=== PATIENT | female | born 1970 | race Caucasian/White ===

== ENCOUNTER → 2023-09-12 14:58 | Outpatient (REF) | payer BC, SELFPAY | LOC: WDC 14:58 | PROVIDERS: ATTENDING PHYSICIAN Obstetrics & Gynecology Gynecology; FAMILY PHYSICIAN Emergency Medicine | DX: Z12.31 Encounter for screening mammogram for malignant neoplasm of breast (principal) | CPT/HCPCS: 77063; 77067 ==

== ENCOUNTER → 2023-11-03 07:20 | Outpatient (REF) | payer BC, SELFPAY | LOC: PAVMRI 07:20 | PROVIDERS: ATTENDING PHYSICIAN Physician Assistant Surgical; FAMILY PHYSICIAN Emergency Medicine | DX: M25.571 Pain in right ankle and joints of right foot (principal); M79.671 Pain in right foot | CPT/HCPCS: 73718; 73721 ==

== ENCOUNTER 2023-12-22 16:28 | Outpatient (RCR) | payer BC, SELFPAY | END 2023-12-22 23:59 | disposition home or self-care (01) | LOC: RPT 16:28 | PROVIDERS: ATTENDING PHYSICIAN Student in an Organized Health Care Education/Training Program; FAMILY PHYSICIAN Emergency Medicine | DX: M76.821 Posterior tibial tendinitis, right leg (principal); Z73.6 Limitation of activities due to disability; M25.571 Pain in right ankle and joints of right foot; R26.2 Difficulty in walking, not elsewhere classified | CPT/HCPCS: 97010; 97110; 97140; 97162 ==

== ENCOUNTER 2024-01-18 15:17 | Outpatient (RCR) | payer BC, SELFPAY | END 2024-01-18 23:59 | disposition home or self-care (01) | LOC: RPT 15:17 | PROVIDERS: ATTENDING PHYSICIAN Student in an Organized Health Care Education/Training Program; FAMILY PHYSICIAN Emergency Medicine | DX: M76.821 Posterior tibial tendinitis, right leg (principal); Z73.6 Limitation of activities due to disability; R26.2 Difficulty in walking, not elsewhere classified | CPT/HCPCS: 97110 ==

== ENCOUNTER → 2024-01-27 07:16 | Outpatient (REF) | payer BC, SELFPAY ==
[2024-01-27 08:47] LABS: % Basophils 0.8 % (0-2); % Eosinophils 2.8 % (0-6); % Immature Granulocytes 0.6 % (0-0.5); % Lymphocytes 26.3 % (20.5-51.1); % Monocytes 5.6 % (1.7-9.3); % Neutrophils 63.9 % (42.2-75.2); Absolute Eosinophils 0.2 10^3/uL (0-0.7); Absolute Lymphocytes 1.4 10^3/uL (1.2-3.4); Absolute Monocytes 0.3 10^3/uL (0.1-0.6); Absolute Neutrophils 3.4 10^3/uL (1.4-6.5); Hematocrit 35.7 % (37.0-47.0); Hemoglobin 11.5 g/dL (12.0-16.0); Mean Corp Hgb Conc. 32.2 g/dL (33.0-37.0); Mean Corpuscular Hgb 25.8 pg (27.0-31.0); Mean Platelet Volume 10.9 fL (7.4-10.4); Nucleated Red Blood Cells % 0 %; Platelet Count 199 10^3/uL (130-400); Red Blood Cell Count 4.46 10^6/uL (4.20-5.40); Red Cell Dist. Width 16.3 % (11.5-14.5); White Blood Cell Count 5.3 10^3/uL (4.8-10.8)
[2024-01-27 09:16] LABS: ALT (SGPT) 33 U/L (0-35); AST (SGOT) 26 U/L (14-36); Albumin 4.1 g/dl (3.5-5.0); Alkaline Phosphatase 81 U/L (38-126); Blood Urea Nitrogen 19 mg/dl (7-17); Calcium 9.5 mg/dl (8.4-10.2); Carbon Dioxide 26 mmol/L (22-30); Chloride 103 mmol/L (98-107); Glucose 122 mg/dl (70-99); HDL Cholesterol 41 mg/dl; LDL Cholesterol, Calculated 122 mg/dl; Potassium 4.4 mmol/L (3.5-5.1); Sodium 138 mmol/L (135-145); Total Bilirubin 0.4 mg/dl (0.2-1.3); Total Cholesterol 192 mg/dl (50-199); Total Protein 6.8 g/dl (6.3-8.2); Triglyceride 146 mg/dl (10-149); Very Low Density Lipoprotein 29 mg/dl (0-30); eGFR > 60.00
[2024-01-28 09:24] LABS: Glycohemoglobin (HgbA1c) 5.7 % (4.0-5.6)
== END ==
LOC: REG 07:16
PROVIDERS: ATTENDING PHYSICIAN Internal Medicine Endocrinology, Diabetes & Metabolism; FAMILY PHYSICIAN Emergency Medicine
DX: R73.03 Prediabetes (principal); I10 Essential (primary) hypertension
CPT/HCPCS: 36415; 80053; 80061; 83036; 85025

== ENCOUNTER 2024-02-09 17:30 | Outpatient (RCR) | payer BC, SELFPAY | END 2024-02-09 23:59 | disposition home or self-care (01) | LOC: RPT 17:30 | PROVIDERS: ATTENDING PHYSICIAN Student in an Organized Health Care Education/Training Program; FAMILY PHYSICIAN Emergency Medicine | DX: M76.821 Posterior tibial tendinitis, right leg (principal); Z73.6 Limitation of activities due to disability; R26.2 Difficulty in walking, not elsewhere classified | CPT/HCPCS: 97110; 97140 ==

== ENCOUNTER 2024-02-15 06:16 | Day surgery (SDC) | payer BC, SELFPAY ==
[2024-02-15 07:39] VITALS: BMI 45.2
[2024-02-15 07:41] VITALS: BMI 45.2
[2024-02-15 07:53] VITALS: BP 153/73
--- NOTE | 2024-02-15 08:12 | PTCARENOTE ---
1 miss for patients IV. Patient states that she has very difficult veins. IV team called to start IV. Will monitor patient.
[2024-02-15 09:35] VITALS: BP 136/58
[2024-02-15 09:45] VITALS: BP 153/81
[2024-02-15 10:00] VITALS: BP 153/71
[2024-02-15 10:12] VITALS: BP 159/73
== END 2024-02-15 10:25 | disposition home or self-care (01) ==
LOC: GI 06:16
PROVIDERS: ATTENDING PHYSICIAN Internal Medicine Gastroenterology
DX: K44.9 Diaphragmatic hernia without obstruction or gangrene (principal); K29.50 Unspecified chronic gastritis without bleeding; K21.9 Gastro-esophageal reflux disease without esophagitis
CPT/HCPCS: 43239; 88305; 88342

== ENCOUNTER → 2024-03-05 06:56 | Outpatient (REF) | payer BC, SELFPAY | LOC: PAVMRI 06:56 | PROVIDERS: ATTENDING PHYSICIAN Student in an Organized Health Care Education/Training Program; FAMILY PHYSICIAN Emergency Medicine | DX: M79.671 Pain in right foot (principal); M25.571 Pain in right ankle and joints of right foot | CPT/HCPCS: 73718; 73721 ==

== ENCOUNTER → 2024-03-13 07:02 | Outpatient (REF) | payer BC, SELFPAY | LOC: EMG 07:02 | PROVIDERS: ATTENDING PHYSICIAN Student in an Organized Health Care Education/Training Program; FAMILY PHYSICIAN Emergency Medicine | DX: R20.0 Anesthesia of skin (principal) | CPT/HCPCS: 95886; 95911 ==

== ENCOUNTER 2024-04-19 13:43 | Outpatient (RCR) | payer BC, SELFPAY | END 2024-04-19 23:59 | disposition home or self-care (01) | LOC: RPT 13:43 | PROVIDERS: ATTENDING PHYSICIAN Student in an Organized Health Care Education/Training Program; FAMILY PHYSICIAN Emergency Medicine | DX: M76.821 Posterior tibial tendinitis, right leg (principal); Z73.6 Limitation of activities due to disability; R26.2 Difficulty in walking, not elsewhere classified | CPT/HCPCS: 97110; 97112 ==

== ENCOUNTER 2024-05-15 15:46 | Outpatient (RCR) | payer BC, SELFPAY | END 2024-05-15 23:59 | disposition home or self-care (01) | LOC: RPT 15:46 | PROVIDERS: ATTENDING PHYSICIAN Student in an Organized Health Care Education/Training Program; FAMILY PHYSICIAN Emergency Medicine | DX: M76.829 Posterior tibial tendinitis, unspecified leg (principal); Z73.6 Limitation of activities due to disability | CPT/HCPCS: 97110; 97112; 97530 ==

== ENCOUNTER → 2024-07-15 09:29 | Outpatient (REF) | payer BC, SELFPAY ==
[2024-07-15 09:57] LABS: % Basophils 0.3 % (0-2); % Eosinophils 2.9 % (0-6); % Immature Granulocytes 0.6 % (0-0.5); % Lymphocytes 18.7 % (20.5-51.1); % Neutrophils 71.5 % (42.2-75.2); Absolute Eosinophils 0.2 10^3/uL (0-0.7); Absolute Lymphocytes 1.2 10^3/uL (1.2-3.4); Absolute Monocytes 0.4 10^3/uL (0.1-0.6); Absolute Neutrophils 4.4 10^3/uL (1.4-6.5); Hematocrit 36.1 % (37.0-47.0); Hemoglobin 11.4 g/dL (12.0-16.0); Mean Corp Hgb Conc. 31.6 g/dL (33.0-37.0); Mean Corpuscular Hgb 25.7 pg (27.0-31.0); Mean Corpuscular Volume 81.3 fL (81.0-99.0); Mean Platelet Volume 11.1 fL (7.4-10.4); Nucleated Red Blood Cells % 0 %; Platelet Count 197 10^3/uL (130-400); Red Blood Cell Count 4.44 10^6/uL (4.20-5.40); Red Cell Dist. Width 16.9 % (11.5-14.5); White Blood Cell Count 6.2 10^3/uL (4.8-10.8)
[2024-07-15 09:59] LABS: Urine Albumin Negative (Neg - Trace); Urine Bilirubin Negative (Negative); Urine Character Clear (Clear); Urine Color Yellow; Urine Glucose Negative (Negative); Urine Ketone Negative (Negative); Urine Leukocyte Negative (Negative); Urine Nitrite Negative (Negative); Urine Occult Blood Negative (Negative); Urine Urobilinogen Negative (Neg - 1+)
[2024-07-15 10:22] LABS: Total Iron Binding Capacity 326 ug/dl (265-497)
[2024-07-15 10:29] LABS: Vitamin D, 25-OH*** 54.1 ng/mL (30-80)
[2024-07-15 10:35] LABS: Glycohemoglobin (HgbA1c) 5.7 % (4.0-5.6)
[2024-07-15 10:41] LABS: ALT (SGPT) 36 U/L (0-35); AST (SGOT) 28 U/L (14-36); Albumin 4.4 g/dl (3.5-5.0); Alkaline Phosphatase 68 U/L (38-126); Blood Urea Nitrogen 23 mg/dl (7-17); Calcium 9.2 mg/dl (8.4-10.2); Carbon Dioxide 29 mmol/L (22-30); Chloride 100 mmol/L (98-107); Glucose 117 mg/dl (70-99); HDL Cholesterol 49 mg/dl; Iron 58 ug/dl (37-170); LDL Cholesterol, Calculated 112 mg/dl; Percent Saturation 17 % (20-50); Potassium 4.5 mmol/L (3.5-5.1); Sodium 137 mmol/L (135-145); Total Bilirubin 0.2 mg/dl (0.2-1.3); Total Cholesterol 188 mg/dl (50-199); Total Protein 6.8 g/dl (6.3-8.2); Triglyceride 138 mg/dl (10-149); Very Low Density Lipoprotein 27 mg/dl (0-30); eGFR > 60.00
[2024-07-15 10:43] LABS: TSH Reflex To Free T4 2.68 uIU/ml (0.47-4.68)
[2024-07-15 10:47] LABS: Ferritin 19.1 ng/ml (11.1-264.0)
== END ==
LOC: OLAB 09:29
PROVIDERS: ATTENDING PHYSICIAN Internal Medicine Endocrinology, Diabetes & Metabolism
DX: R73.03 Prediabetes (principal)
CPT/HCPCS: 36415; 80053; 80061; 81003; 82306; 82728; 83036; 83540; 83550; 84443; 85025

== ENCOUNTER → 2024-09-11 10:37 | Outpatient (REF) | payer BC, SELFPAY | LOC: RAD 10:37 | PROVIDERS: ATTENDING PHYSICIAN Nurse Practitioner Adult Health; FAMILY PHYSICIAN Emergency Medicine | DX: N95.0 Postmenopausal bleeding (principal) | CPT/HCPCS: 76830; 76856 ==

== ENCOUNTER → 2024-09-14 14:43 | Outpatient (REF) | payer BC, SELFPAY | LOC: WDC 14:43 | PROVIDERS: ATTENDING PHYSICIAN Obstetrics & Gynecology Gynecology; FAMILY PHYSICIAN Emergency Medicine | DX: Z12.31 Encounter for screening mammogram for malignant neoplasm of breast (principal) | CPT/HCPCS: 77063; 77067 ==

== ENCOUNTER → 2024-10-18 12:03 | Outpatient (REF) | payer BC, SELFPAY | LOC: CLAB 12:03 | PROVIDERS: ATTENDING PHYSICIAN Obstetrics & Gynecology Gynecology | DX: N93.9 Abnormal uterine and vaginal bleeding, unspecified (principal) | CPT/HCPCS: 88305 ==

== ENCOUNTER → 2024-10-26 11:24 | Outpatient (REF) | payer BC, SELFPAY ==
[2024-10-26 12:09] LABS: % Basophils 0.6 % (0-2); % Eosinophils 2.8 % (0-6); % Immature Granulocytes 0.3 % (0-0.5); % Lymphocytes 29.9 % (20.5-51.1); % Neutrophils 60.4 % (42.2-75.2); Absolute Eosinophils 0.2 10^3/uL (0-0.7); Absolute Lymphocytes 2.2 10^3/uL (1.2-3.4); Absolute Monocytes 0.4 10^3/uL (0.1-0.6); Absolute Neutrophils 4.4 10^3/uL (1.4-6.5); Hematocrit 37.4 % (37.0-47.0); Mean Corp Hgb Conc. 32.1 g/dL (33.0-37.0); Mean Corpuscular Hgb 25.9 pg (27.0-31.0); Mean Corpuscular Volume 80.6 fL (81.0-99.0); Mean Platelet Volume 10.3 fL (7.4-10.4); Nucleated Red Blood Cells % 0 %; Platelet Count 195 10^3/uL (130-400); Red Blood Cell Count 4.64 10^6/uL (4.20-5.40); Red Cell Dist. Width 16.8 % (11.5-14.5); White Blood Cell Count 7.2 10^3/uL (4.8-10.8)
[2024-10-26 12:21] LABS: Iron 83 ug/dl (37-170)
[2024-10-26 12:31] LABS: Percent Saturation 24 % (20-50); Total Iron Binding Capacity 339 ug/dl (265-497)
[2024-10-26 12:55] LABS: Ferritin 21.5 ng/ml (11.1-264.0)
== END ==
LOC: CLAB 11:24
PROVIDERS: ATTENDING PHYSICIAN Emergency Medicine
DX: D50.8 Other iron deficiency anemias (principal)
CPT/HCPCS: 36415; 82728; 83540; 83550; 85025

== ENCOUNTER 2025-01-04 06:04 | Day surgery (SDC) | payer BC, SELFPAY ==
[2024-12-26 13:56] VITALS: BMI 46.4
[2025-01-04] VITALS (11 sets, daily range): BP systolic 110–144; BP diastolic 63–81; BMI 46.4
[2025-01-04] MEDS: NORMOSOL-R/PLASMALYTE-A 1000 IV (07:31)
[2025-01-04] MEDS: TORADOL 30 MG IV (09:27)
== END 2025-01-04 10:22 | disposition home or self-care (01) ==
LOC: SDS 06:04
PROVIDERS: ATTENDING PHYSICIAN Obstetrics & Gynecology Gynecology; FAMILY PHYSICIAN Emergency Medicine
DX: N72 Inflammatory disease of cervix uteri (principal); N95.0 Postmenopausal bleeding; N88.2 Stricture and stenosis of cervix uteri
CPT/HCPCS: 58563; 88305; 36415; 93005

== ENCOUNTER → 2025-01-26 07:28 | Outpatient (REF) | payer BC, SELFPAY ==
[2025-01-26 08:41] LABS: Hematocrit 37.7 % (37.0-47.0); Hemoglobin 12.3 g/dL (12.0-16.0); Mean Corp Hgb Conc. 32.6 g/dL (33.0-37.0); Mean Corpuscular Volume 82.0 fL (81.0-99.0); Nucleated Red Blood Cells % 0 %; Platelet Count 183 10^3/uL (130-400); Red Cell Dist. Width 16.3 % (11.5-14.5)
[2025-01-26 09:09] LABS: ALT (SGPT) 35 U/L (0-35); AST (SGOT) 22 U/L (14-36); Albumin 4.3 g/dl (3.5-5.0); Alkaline Phosphatase 80 U/L (38-126); Blood Urea Nitrogen 16 mg/dl (7-17); Calcium 9.6 mg/dl (8.4-10.2); Carbon Dioxide 26 mmol/L (22-30); Chloride 105 mmol/L (98-107); Glucose 137 mg/dl (70-99); HDL Cholesterol 45 mg/dl; LDL Cholesterol, Calculated 138 mg/dl; Potassium 4.6 mmol/L (3.5-5.1); Sodium 138 mmol/L (135-145); Total Protein 7.0 g/dl (6.3-8.2); Very Low Density Lipoprotein 27 mg/dl (0-30); eGFR > 60.00
[2025-01-26 12:31] LABS: Glycohemoglobin (HgbA1c) 5.7 % (4.0-5.6)
== END ==
LOC: REG 07:28
PROVIDERS: ATTENDING PHYSICIAN Internal Medicine Endocrinology, Diabetes & Metabolism; FAMILY PHYSICIAN Emergency Medicine
DX: R73.03 Prediabetes (principal); I10 Essential (primary) hypertension
CPT/HCPCS: 36415; 80053; 80061; 83036; 85025

== ENCOUNTER → 2025-03-01 07:32 | Outpatient (REF) | payer BC, SELFPAY | LOC: MRI 07:32 | PROVIDERS: ATTENDING PHYSICIAN Obstetrics & Gynecology Gynecology; FAMILY PHYSICIAN Emergency Medicine | DX: N95.0 Postmenopausal bleeding (principal); Z98.890 Other specified postprocedural states; D21.9 Benign neoplasm of connective and other soft tissue, unspecified | CPT/HCPCS: 72197; A9585 ==

== ENCOUNTER → 2025-03-04 13:10 | Outpatient (REF) | payer BC, SELFPAY ==
[2025-03-04 14:26] LABS: Hematocrit 39.1 % (37.0-47.0); Hemoglobin 12.6 g/dL (12.0-16.0); Mean Corp Hgb Conc. 32.2 g/dL (33.0-37.0); Mean Corpuscular Volume 83.2 fL (81.0-99.0); Nucleated Red Blood Cells % 0 %; Platelet Count 193 10^3/uL (130-400); Red Cell Dist. Width 16.2 % (11.5-14.5)
[2025-03-04 14:30] LABS: INR 0.98; PT 13.3 Sec (11.4-14.6)
[2025-03-04 14:31] LABS: APTT 27.7 Sec (23.4-35.0)
[2025-03-04 15:05] LABS: ALT (SGPT) 27 U/L (0-35); AST (SGOT) 22 U/L (14-36); Albumin 4.4 g/dl (3.5-5.0); Alkaline Phosphatase 85 U/L (38-126); Blood Urea Nitrogen 16 mg/dl (7-17); Calcium 9.3 mg/dl (8.4-10.2); Carbon Dioxide 26 mmol/L (22-30); Chloride 104 mmol/L (98-107); Glucose 109 mg/dl (70-99); Potassium 4.5 mmol/L (3.5-5.1); Sodium 138 mmol/L (135-145); Total Protein 7.2 g/dl (6.3-8.2); eGFR > 60.00
[2025-03-04 15:27] LABS: LDH 193 U/L (120-246)
[2025-03-04 17:04] LABS: FSH 33.9 mIU/ml
[2025-03-04 19:24] LABS: CA 125 9.2 U/mL (0-35)
== END ==
LOC: REG 13:10
PROVIDERS: ATTENDING PHYSICIAN Obstetrics & Gynecology Gynecologic Oncology
DX: N93.9 Abnormal uterine and vaginal bleeding, unspecified (principal); R10.2 Pelvic and perineal pain; E66.01 Morbid (severe) obesity due to excess calories; I10 Essential (primary) hypertension; Z80.49 Family history of malignant neoplasm of other genital organs
CPT/HCPCS: 36415; 71046; 80053; 83001; 83002; 83615; 84443; 85025; 85610; 85730; 86304

== ENCOUNTER 2025-04-02 06:25 | Day surgery (SDC) | payer BC, SELFPAY ==
[2025-03-19 14:07] VITALS: BMI 46.0
--- NOTE | 2025-03-26 13:27 | SUR.OPER ---
Patients 03/19 ECG abnormal- reviewed by Dr. Vale- no additional interventions required.
--- NOTE | 2025-03-29 10:28 | PTCARENOTE ---
Patients 03/19 ECG abnormal- reviewed by Dr. Vale- no additional interventions required. Dr. Vale notified 03/26
--- NOTE | 2025-03-31 10:31 | W.CON.GYNONC ---
Consultation
-
Date/Time Consultation Performed: 04/02/2025
Performing Provider: Hansel Urbina
Reason for Consultation: Pre Op H&P
Chief Complaint
-
abnormal uterine bleeding
History of Present Illness
This�54�year�old�woman�referred�to�me�by�Dr.Arias�for�abnormal�uterine�bleeding. Patient's�history�significant�for�history�of�endometrial�ablation�2012.�Following�that�she�has�had�pelvic�pain�for�multiple�years.�She
has�had�workup�by�GI�which�was�negative. Ultrasound�dated�March�2�indicates�uterus�8.5�cm�in�size�endometrium�measuring�4.9�mm,�2.4�cm�subserosal�or�intramural
leiomyoma�is�seen,�right�ovary�is�2.2�cm,�left�ovary�is�1.3�cm.�An�additional�1.6�cm�benign�appearing�simple�cyst�is�seen�in�the�left ovary. Pap�smear�dated�Lillian��is�negative.
Ultrasound�ultrasound�dated�February��indicates�uterus�9.5�cm�with�a�2.4�cm�fibroid�along�anterior�uterine�body. Endometrium�is�6�mm�with�no�fluid�solid�lesions�or�abnormal�vascularity.�Both�ovaries�appear�to�be�normal�measuring�at�2.5�cm�on
the�right�and�2.60�cm�and�left An�endometrial�biopsy�was�obtained�Mar�which�shows�small�detached�fragments�of�acutely�and�chronically�inflamed endocervical�mucosa�with�reactive�changes�with�no�definitive�endometrium�identified
An�ECC�was�obtained�Maye�1�which�shows�blood�and�fibrin�mucus�and�stroma�and�rare�benign�endocervical�mucosa�cells with�acute�and�chronic�inflammation. Patient�was�seen�Maye�1�in�the�office,�plan�was�for�a�D&C�hysteroscopy
Patient�was�seen�in�the�office�Cece�.�Hysteroscopy�D&C�was�attempted�but�they�were�unable�to�get�in�the�endometrial cavity.�Vaginal�bleeding�was�felt�to�be�coming�from�a�friable�cervix
MRI�of�the�pelvis�[place]��shows�uterus�to�be�anteverted,�endometrium�is�less�than�5�mm�in�thickness,�there�are�multiple
subendometrial�cysts�measuring�less�than�5�mm,�there�is�a�3.2�cm�isointense�T1�and�intermediate�to�low�T2�signal�intramural�mass
in�the�posterior�uterine�body,�this�is�leiomyoma�or�adenomyoma.�There�is�interval�decrease�in�the�size�of�the�1.9�cm�intramural
leiomyoma�in�the�anterior�uterine�body�and�multiple�areas�suggestive�of�adenomyosis.�Right�and�left�ovary�are�normal�in�size.�The
liver�is�mildly�enlarged�18.2�cm�there�is�no�fluid�in�the�abdomen.�There�is�no�small�bowel�wall�thickening�or�distention�there�is�no
abnormal�colonic�distention�and�there�is�mild�amount�of�circumferential�thickening�around�the�rectum�there�is�no�pelvic lymphadenopathy.�Grade�1�anterolisthesis�L5�on�L1�and�L5�on�S1�is�noted�severe�bilateral�facet�joint�arthrosis�are�present
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
Past�medical�history:�Obesity,�hypertension,�prediabetes,�allergies,�gastroesophageal�reflux,�migraines,�bladder�frequency,�chronic swelling�of�ankles,�glaucoma
Past�surgical�history�includes�cholecystectomy,�tonsillectomy,�D&C,�excision�of�fibrocystic�breast�tumor,�varicose�veins
Medications�include�propranolol,�escitalopram,�hydrochlorothiazide,�vitamin�D3,�One�A�Day�multivitamin�Clarice,�Claritin, omeprazole,�Excedrin
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
Family�history�diabetes�in�both�parents�and�brother,�renal�disease�father,�high�blood�pressure�both�parents.�Mother�with�uterine cancer�as�well�as�melanoma
Medical History
Allergies
Allergies reflect when allergies were last updated in [facility].
Cephalosporins Allergy (Verified 03/26/25 15:05)
Nausea
dorzolamide Allergy (Verified 03/26/25 15:05)
Itchy Lips
famotidine Allergy (Verified 03/26/25 15:05)
Nausea
lansoprazole (From Prevacid) Allergy (Verified 03/26/25 15:05)
diarrhea,esophagus pain
mold Allergy (Verified 03/26/25 15:05)
Swelling
omeprazole (From Prilosec) Allergy (Verified 03/26/25 15:05)
diarrhea,esophagus pain
omeprazole magnesium (From Prilosec) Allergy (Verified 03/26/25 15:05)
diarrhea,esophagus pain
Penicillins Allergy (Verified 03/26/25 15:05)
Swelling
pollen extracts Allergy (Verified 03/26/25 15:05)
Nasal Congestion, Body Itching
alpha delisa Allergy (Uncoded 03/26/25 15:05)
stomach pain
Calcium Channel Delisa Allergy (Uncoded 03/26/25 15:05)
Nauses
sulfa eye drops Allergy (Uncoded 03/26/25 15:05)
lips tingle,face itch
Physical Exam
Physical Exam
Physical�Exam Pelvic�Examination: External�normal�labia,�urethra,�anus.� Vagina:�Normal�mucosa. Cervix:�normal�appearance,�no�discharge.� Uterus:�normal�size.� Adnexa:�No�pelvic�mass.� RVE:�no�masses�or�nodularity
General:�Well�developed,�well�nourished�patient.�In�no�acute�distress. Neck:�No�thyromegaly.�No�cervical�lymphadenopathy. Lungs:�Clear�to�auscultation.�Good�air�movement�bilaterally. Cardiac:�Regular�rate.�Regular�rhythm.�No�murmurs�appreciated.
Right�Breast:�No�masses�or�dimpling.�No�nipple�discharge. Left�Breast:�No�masses�or�dimpling.�No�nipple�discharge. Abdomen:�Abdomen�is�soft.�Non�tender�to�palpation.�Non�distended. Extremities:�No�edema.
Hematologic/Lymphatic:�No�palpable�lymphadenopathy. Musculoskeletal:�Normal�range�of�motion.�Strength�and�Tone�are�normal. Skin:Non�jaundiced.�No�petechia.�No�purpura. Neurologic:�Speech�is�fluent.�Normal�gait�and�station.�Cranial�nerves�intact.
Results
-
[facility]
[address] [place] [address]
[phone]
Patient Name: MORGAN DERAS
: 1970
Unit Number: [id number]
Age/Sex: 54/F
Patient
Location: REG
Order Provider: Hansel Urbina MD
Exam Service Date: 03/04/25

Diagnostic Imaging Report
SignedOrder #:[id number]
Exams: CR Chest - 2 Views
CPT: 89755
PROCEDURE: CR Chest - 2 Views
INDICATION: 54 year old with hypertension.
TECHNIQUE: Frontal and lateral views of the chest
COMPARISON: CT coronary from 04/11/2023
FINDINGS:
Lines/Tubes/Devices: None
Lungs/Pleura: No focal airspace disease. No pleural effusions or pneumothorax.
Mediastinum/Heart: Within normal limits.
Bones: No suspicious lesions.
Cholecystectomy clips are noted within the right upper quadrant.
IMPRESSION:
No radiographic evidence of acute cardiopulmonary abnormality.
Electronically signed by Leobardo Mahoney MD, 03/04/2025 1:51 PM
Dictated By: Leobardo Mahoney MD
Dictated Date & Time: 03/04/25 1348
Impression / Plan
-
54�year�old�woman�who�has�abnormal�bleeding.�She�has�had�a�prior�history�of�endometrial�ablation.�Several�attempts�have�been made�to�sample�the�endometrium�and�not�surprisingly�there�is�no�endometrial�tissue�sampled�because�of�stenotic�lower�uterine
segment�and�endometrial�cavity.�She�has�had�chronic�pain�since�ablation�of�the�endometrial�cavity�very�likely�due�to�scarring�in�the uterus�and�trapped�blood�and�retrograde�bleeding.�
The�option�of�here�is�removal�of�uterus�and�cervix�with�bilateral�tubes�and�ovaries for�definitive�management�MRI�does�show�3.2�cm�area�of�abnormality�which�is�probably�consistent�with�adenomyoma�or�leiomyoma but�malignancy�cannot�be�100%�ruled�out.�
My�recommendation�is�for�robotic�assisted�total�laparoscopic�hysterectomy�bilateral salpingo�oophorectomy.�
Labs�and�chest�x�ray�in�preparation�for�surgery�will�be�performed.�
The�patient�understands�that�I�will�be leaving�[facility]�and�while�I�may�have�first�postop�visit�with�the�patient�the�second�postoperative�visit�will�likely�be�done�by�her occupational ther.�
Because�of�financial�issues�related�to�insurance�at�[employer]�she�is�unable�to�leave�the�system.�She�would�prefer�to have�the�surgery�done�here.�She�signed�informed�consent�in�the�office�today.
The�patient�needs�to�see�her�primary�care�physician�for�preoperative�clearance She�has�risks�including�infection�bleeding�injury�to�adjacent�organs�DVT�pulmonary�embolism�and�cardiovascular�complications
which�were�discussed�in�detail�with�the�patient We�reviewed�the�recovery�process�and�she�will�need�2�to�3�weeks�off�work�as�a�result�of�the[facility]
[2025-04-02] VITALS (21 sets, daily range): BP systolic 130–201; BP diastolic 74–125; BMI 46.0
[2025-04-02] MEDS: TYLENOL 1000 MG PO (13:07)
[2025-04-02] MEDS: NEURONTIN 300 MG PO (13:07)
[2025-04-02] MEDS: CELEBREX 200 MG PO (13:37)
[2025-04-02] MEDS: NORMOSOL-R/PLASMALYTE-A 1000 IV (13:38)
[2025-04-02] MEDS: HEPARIN 5000 UNITS SC (17:48)
--- NOTE | 2025-04-02 19:32 | OR.RPT ---
Operative Report
Operative Report
DATE OF OPERATION: 04/02/2025
SURGEON: Hansel Urbina MD
PREOPERATIVE DIAGNOSES: Unexplained postmenopausal bleeding, prior
history of endometrial ablation, inability to sample endometrium. Pelvic pain
POSTOPERATIVE DIAGNOSES: same
PROCEDURES:
1. Robotic assisted total laparoscopic hysterectomy with bilateral
salpingo-oophorectomy.
2. TAP blocks.
ASSISTANTS:
1. Linda Coleman PA-C.
2. TIM Melendez.
ANESTHESIA: General endotracheal intubation.
COMPLICATIONS: None.
ESTIMATED BLOOD LOSS: 50 mL.
PROCEDURE IN DETAIL: This patient was taken to the operating room
and placed in a supine position. General anesthesia was
administered. She was intubated without any difficulty. She was
placed in lithotomy position using Yellofin stirrups. Arms were
wrapped in place along the patient's side and all joints were
attended to ensure lack of any pressure on any upper or lower
extremity. The patient was prepped on the abdomen, perineum, and
vagina. Zepeda catheter was inserted under sterile conditions in the
bladder.
The patent was draped. Timeout procedure was completed.
after
placement of the Zepeda catheter, the cervix was grasped with single
tooth tenaculum and was gradually dilated. Uterine manipulator with 2.5 cm
Yulia ring was placed around
the cervix and vaginal self-occluder was insufflated.
She received appropriate antibiotics preoperatively. Veress needle
was inserted just below left subcostal margin and pneumoperitoneum
was created up to pressure of 50 mmHg. 8 mm robotic port was
inserted 25 cm cephalad to symphysis pubis into the peritoneal
cavity. A survey of the upper abdomen reveals liver, stomach,
diaphragms, right and left pericolic gutters to be within normal
limits. Under direct visualization, TAP block was injected with
bupivacaine and Decadron mixture equally distributed 2
fingerbreadths along the lateral aspect of right and left subcostal
margins just above the peritoneum, but below the muscle. Once this
was completed, right and left upper quadrant XI robotic ports were
placed and right and left XI robotic ports were placed in the
lateral abdomen. The patient was placed in 28 degree Trendelenburg.
The robotic system was docked.
once I sat on the console. Right and left
round ligaments were sealed and divided. Anterior and posterior leads
and a broad ligament was dissected open. The course of the ureters
were identified bilaterally and a window was created between IP
ligaments and ureters. Both IP ligaments were sealed and divided
securely. Tubes and ovaries were left attached to the uterus.
Next, bladder flap was sharply developed
and advanced below the cervicovaginal junction. Both uterine
arteries were skeletonized. They were sealed 3 times and divided.
Next, cervical, ischial, uterosacral ligament were sealed and
divided. Circumferential incision was made around the Yulia ring
until the specimen was completely detached. Uterus, cervix,
bilateral tubes, and ovaries were removed through the vagina in a bag and
submitted to pathology. The vaginal apex was closed with 0-Vicryl
suture and ligature in a Figure-of-8 fashion at both apices.
Following this, V-Loc suture was used to close the vaginal cuff
starting from right to the left side and back to the right side in
2 layers. We irrigated the pelvis and there was no evidence of
bleeding. We inspected the vagina and there was no evidence of
lacerations. All ports were removed and pneumoperitoneum was
released. The fascia for all the ports were not closed because they
were 8 mm each in size. Skin incisions were closed with 4-0
Monocryl in a subcuticular fashion. The patient was awakened,
extubated, and returned back to recovery room in stable, awake, and
extubated condition. Counts of laps, instruments, and needle was
correct x2. I was present and scrubbed for the entire procedure as
dictated above.
DISPOSITION: To PACU, stable, awake, and extubated.
SPECIMENS: Uterus and cervix with bilateral tubes and ovaries,
[2025-04-02] MEDS: DILAUDID 0.25 MG IV (20:01)
[2025-04-02] MEDS: TORADOL 15 MG IV (20:33)
[2025-04-02] MEDS: APRESOLINE 5 MG IV (21:19)
--- NOTE | 2025-04-02 21:53 | CON.HOSP ---
Family Physician
-
Family Physician: Juan Alberto Ramon
Chief Complaint
-
surgery
History of Present Illness
55-year-old female past medical history of abnormal uterine bleeding, endometrial ablation in 2012, obesity, hypertension, prediabetes, allergies, GERD, migraines, chronic swelling of ankles, glucoma, who underwent robotic assisted total
laparoscopic hysterectomy with bilateral salpingo-oophorectomy today for unexplained postmenopausal bleeding and pelvic pain.
Patient had a prior history of endometrial ablation and several attempts have been made to sample the endometrium which could not be performed due to stenotic lower uterine segment and endometrial cavity. She had had chronic pain since his ablation
likely due to scarring and trapped blood in retrograde bleeding.
She does not smoke or drink alcohol.
Medical History
Past Medical History
Past Medical History: Reports Other (abnormal uterine bleeding, endometrial ablation in 2012, obesity, hypertension, prediabetes, allergies, GERD, migraines, chronic swelling of ankles, glucoma, obstructive sleep apnea)
Past Surgical History: Reports Other (cholecystectomy, tonsillectomy, D&C, excision of fibrocystic breast tumor, varicose veins )
Social History
Tobacco: Non-smoker
Alcohol: None
Drug: None
Allergies / Home Medications
Allergies reflects when Allergies were last updated in [facility].
Home Medications with original date entered in [facility]
Allergy/Medication List:
Allergies
Allergy/AdvReac Type Severity Reaction Status Date / Time
Cephalosporins Allergy Nausea Verified 04/02/25 12:45
dorzolamide Allergy Itchy Lips Verified 04/02/25 12:45
famotidine Allergy Nausea Verified 04/02/25 12:45
lansoprazole (From Prevacid) Allergy diarrhea,esophagus Verified 04/02/25 12:45
pain
mold Allergy Swelling Verified 04/02/25 12:45
omeprazole (From Prilosec) Allergy diarrhea,esophagus Verified 04/02/25 12:45
pain
omeprazole magnesium (From Allergy diarrhea,esophagus Verified 04/02/25 12:45
Prilosec) pain
Penicillins Allergy Swelling Verified 04/02/25 12:45
pollen extracts Allergy Nasal Verified 04/02/25 12:45
Congestion,
Body
Itching
alpha delisa Allergy stomach Uncoded 04/02/25 12:45
pain
Calcium Channel Delisa Allergy Nauses Uncoded 04/02/25 12:45
sulfa eye drops Allergy lips Uncoded 04/02/25 12:45
tingle,face
itch
Home Medications
ylnjnbw-nijlfvqrucylp-xptppvfn 250 mg-250 mg-65 mg tablet (Excedrin Migraine) 1 tab PO PRN PRN headache 08/08/13
propranolol 160 mg capsule,24 hr,extended release (Inderal LA) 160 mg PO DAILY 08/08/13
cholecalciferol (vitamin D3) 125 mcg (5,000 unit) tablet (Vitamin D3) 125 mcg PO DAILY 08/02/23
escitalopram oxalate 10 mg tablet 10 mg PO DAILY 08/02/23
hydrochlorothiazide 12.5 mg tablet 12.5 mg PO DAILY 08/02/23
hqvzftcq-mrp-osqnmpow acid 250 mg-herbal 87.5 mg chewable tablet 1 tab PO DAILY 08/02/23
omeprazole 40 mg-sodium bicarbonate 1.1 gram capsule 1 cap PO HS 08/02/23
loratadine 10 mg tablet (Claritin) 10 mg PO HS 08/08/23
fexofenadine 180 mg tablet 180 mg PO DAILY 12/27/24
Review of Systems
-
History Source: Patient
A 12 point Review of Systems was completed except as noted: Yes
Constitutional: Reports No Symptoms
EENT: Reports No Symptoms
Respiratory: Reports No Symptoms
Cardiac: Reports No Symptoms
Abdomen/GI: Reports No Symptoms
: Reports No Symptoms
Musculoskeletal: Reports No Symptoms
Skin: Reports No Symptoms
Neurological: Reports No Symptoms
Endocrine: Reports No Symptoms
Hematologic/Lymphatic: Reports No Symptoms
Psych: Reports No Symptoms
Physical Exam
Vital Signs
Vital Signs
Temp Pulse Resp BP Pulse Ox
97.3 F 81 20 190/94 95
04/02/25 21:15 04/02/25 21:30 04/02/25 21:30 04/02/25 21:30 04/02/25 21:30
Physical Exam
General: Well Developed, Well Nourished and No Apparent Distress
HEENT: Normocephalic, Moist Mucous Membranes and Atraumatic
Respiratory: Clear
Cardiac: S1/S2 and Regular Rhythm; Negative Murmur or Rub
GI: Soft, Non Tender, Non Distended and Normal Bowel Sounds
Rectal: Deferred by Provider
Musculoskeletal: No Clubbing, No Cyanosis and No Edema
Skin: Negative Rash
Neuro: Nonfocal/Grossly Intact
Data Reviewed
-
Lab Data: Labs Reviewed
Old Records: Reviewed
Impression / Plan
-
IMPRESSION:
PLAN:
# Abnormal uterine bleeding/pelvic pain status post robotic assisted total laparoscopic hysterectomy bilateral salpingo-oophorectomy
# Adenomyoma/leiomyoma versus malignancy
- Estimated blood loss 50 mL
-likely can be discharged tomorrow
# Hypertensive urgency due to not taking medications today
-As needed hydralazine
Essential hypertension
- Continue propranolol, hydrochlorothiazide
Prediabetes
History of allergies
- Continue loratadine, fexofenadine
Obstructive sleep apnea
- Continue CPAP
GERD
- Continue omeprazole
Migraine history
Chronic swelling of ankle
Glaucoma
Anxiety/depression
- Continue Lexapro
Overactive bladder with bladder stimulator
Full code
DVT prophylaxis-SCDs
Regular diet
[2025-04-02] MEDS: NSS 1000 IV (22:56)
--- NOTE | 2025-04-02 23:09 | RESPNOTE ---
Pt is refusing CPAP at this time. Pt has her own oral device used for [place] and requests to use that
[2025-04-02] MEDS: TYLENOL 650 MG PO (23:14)
--- NOTE | 2025-04-03 00:13 | PTCARENOTE ---
2300 - pt refused to use hospital CPAP. Maintained on O2 @ 93% at this time. Assessment ongoing.
[2025-04-03 03:18] VITALS: BP 158/59
[2025-04-03] MEDS: TYLENOL 650 MG PO ×2 (05:15→12:44)
[2025-04-03] MEDS: MOTRIN 600 MG PO ×2 (05:15→12:44)
[2025-04-03 07:06] LABS: Hematocrit 36.6 % (37.0-47.0); Hemoglobin 12.0 g/dL (12.0-16.0); Mean Corp Hgb Conc. 32.8 g/dL (33.0-37.0); Mean Corpuscular Volume 82.2 fL (81.0-99.0); Platelet Count 161 10^3/uL (130-400); Red Cell Dist. Width 15.9 % (11.5-14.5)
[2025-04-03 07:30] LABS: ALT (SGPT) 76 U/L (0-35); AST (SGOT) 47 U/L (14-36); Albumin 4.0 g/dl (3.5-5.0); Alkaline Phosphatase 74 U/L (38-126); Blood Urea Nitrogen 13 mg/dl (7-17); Calcium 8.9 mg/dl (8.4-10.2); Carbon Dioxide 26 mmol/L (22-30); Chloride 105 mmol/L (98-107); Estimated Creatinine Clearance > 125 ml/min; Glucose 174 mg/dl (70-99); Potassium 4.4 mmol/L (3.5-5.1); Sodium 138 mmol/L (135-145); Total Protein 6.4 g/dl (6.3-8.2); eGFR > 60.00
[2025-04-03 07:50] VITALS: BP 175/100
--- NOTE | 2025-04-03 08:56 | W.PN.HOSP.TC ---
Today's Communication/Plan
-
Discharge plan
Assessment / Plan
Assessment / Plan
Physical exam:
General: Well Developed, Well Nourished and No Apparent Distress
HEENT: Normocephalic, Atraumatic and Moist Mucous Membranes
Respiratory: Clear to Auscultation; Negative Wheezes, Rales or Rhonchi
Cardiac: Regular Rhythm and S1/S2
GI: Soft, Nontender and Nondistended
Musculoskeletal: No Clubbing, No Cyanosis and No Edema
Neuro: Awake, Alert and Oriented
Psych: Calm
A/P:
# Abnormal uterine bleeding/pelvic pain status post robotic assisted total laparoscopic hysterectomy bilateral salpingo-oophorectomy
# Adenomyoma/leiomyoma versus malignancy
- Discussed with [facility] oncology today and told him she is cleared for discharge from my standpoint
# Hypertensive urgency
-Improving
- She did not took her HCTZ yesterday but was instructed not to. She did took her propranolol yesterday. She is back on her home regimen today.
- Blood pressure still a bit on the high side so I gave her 2 options:
A) start low-dose of amlodipine versus increasing doses of her home regimen.
B) continue home regimen and keep a log of her blood pressure and follow-up with PCP as outpatient since this might be also circumstantial.
Patient prefers option B.
Essential hypertension
- Continue propranolol, hydrochlorothiazide
Prediabetes
History of allergies
- Continue loratadine, fexofenadine
Obstructive sleep apnea
- Continue CPAP
GERD
- Continue omeprazole
Migraine history
Chronic swelling of ankle
Glaucoma
Anxiety/depression
- Continue Lexapro
Overactive bladder with bladder stimulator
Full code
DVT prophylaxis-SCDs
Anticipated Discharge: Today
Subjective/Interval History
-
Date of Service: April 03, 2025
Patient feels well today. No chest pain shortness of breath or headaches.
Objective Data
-
Labs:
Laboratory Results
04/03/25
06:13
WBC 7.3
Hgb 12.0
Hct 36.6 L
Plt Count 161
Sodium 138
Potassium 4.4
Chloride 105
Carbon Dioxide 26
BUN 13
Creatinine 0.6
Glucose 174 H
Calcium 8.9
Total Bilirubin 0.5
AST 47 H
ALT 76 H
Alkaline Phosphatase 74
Vital Signs:
Vital Signs
Temp Pulse Resp BP Pulse Ox
97.9 F 97 16 158/59 97
04/03/25 03:18 04/03/25 03:18 04/03/25 03:18 04/03/25 03:18 04/03/25 03:18
I&O
04/02/25 04/03/25 04/04/25
06:59 06:59 06:59
Intake Total 730 / 730
Balance 730 / 730
[2025-04-03] MEDS: INDERAL LA 160 MG PO (09:08)
[2025-04-03] MEDS: CLARITIN 10 MG PO (09:09)
[2025-04-03] MEDS: COLACE 100 MG PO (09:09)
[2025-04-03] MEDS: ORETIC 12.5 MG PO (09:09)
[2025-04-03] MEDS: PROTONIX 40 MG PO (09:09)
[2025-04-03] MEDS: LEXAPRO 10 MG PO (09:09)
--- NOTE | 2025-04-03 11:09 | VNURNOTE ---
Home Health Liaison met with patient at bedside to discuss [facility] nurse/therapy, visits, schedule and homebound status. Patient is agreeable and understands that visits at home will be 2-3 x per week to assess and teach medical management.
Patient is aware that [facility] will contact them for start of care in 1-2 days after discharge from . Provided contact number for [facility].
[facility] referral completed in [facility].
--- NOTE | 2025-04-03 11:16 | CM ---
Cm reviewed medical records. Patient advised this this CM that she does not have any one at home to help her and she will return to her apartment. She did say that her friends from work would be able to provide transportation. Patient further
stated that her brother lives about an hour away.
[facility] CM updated [facility] Admission RN.
PLAN: home with VN
[2025-04-03 12:25] VITALS: BP 163/80
--- NOTE | 2025-04-03 14:09 | W.PN.GYNONC ---
Today's Communication
-
dc home today
Impression / Plan
-
54�year�old�woman�who�has�abnormal�bleeding.�She�has�had�a�prior�history�of�endometrial�ablation.
Abnormal uterine bleeding/pelvic pain status post robotic assisted total laparoscopic hysterectomy bilateral salpingo-oophorectomy
# Adenomyoma/leiomyoma versus malignancy
- Estimated blood loss 50 mL
-likely can be discharged tomorrow
# Hypertensive urgency due to not taking medications today
-As needed hydralazine
Essential hypertension
- Continue propranolol, hydrochlorothiazide
Prediabetes
History of allergies
- Continue loratadine, fexofenadine
Obstructive sleep apnea
- Continue CPAP
GERD
- Continue omeprazole
Migraine history
Chronic swelling of ankle
Glaucoma
Anxiety/depression
- Continue Lexapro
Subjective / Interval History
-
POD 1 Robotic TLH BSO
Objective Data
-
Lab Results:
04/03/25 06:13
04/03/25 06:13
Physical Exam
Vital Signs / I&O
Vitals
Temp Pulse Resp BP Pulse Ox
98.5 F 75 16 163/80 95
04/03/25 12:25 04/03/25 12:25 04/03/25 12:25 04/03/25 12:25 04/03/25 12:25
I&O
04/01/25 04/02/25 04/03/25 04/04/25
06:59 06:59 06:59 06:59
Intake Total 730 / 730 1140 / 1140
Balance 730 / 730 1140 / 1140
Physical Exam
General: No Apparent Distress and Comfortable
Respiratory: Clear
Cardiac: S1/S2 and Regular Rhythm
GI: Soft, Non Tender and Non Distended
Neuro: Awake, Alert and Oriented
Hematologic/Lymphatic: No Lymphadenopathy
Psych: Calm and Intact Judgement
--- NOTE | 2025-04-03 14:45 | W.DCSUMMARY ---
Discharge Summary
Discharge Data
Date of Admission: 04/02/25
Date of Discharge: 04/03/25
-
Pending Results: Yes
Additional Pending Results:
Pathology
Hospital Course
This�54�year�old�woman�referred�to�me�by�Dr.Arias�for�abnormal�uterine�bleeding. Patient's�history�significant�for�history�of�endometrial�ablation�2012.�Following�that�she�has�had�pelvic�pain�for�multiple�years.�She
has�had�workup�by�GI�which�was�negative. Ultrasound�dated�March�2�indicates�uterus�8.5�cm�in�size�endometrium�measuring�4.9�mm,�2.4�cm�subserosal�or�intramural
leiomyoma�is�seen,�right�ovary�is�2.2�cm,�left�ovary�is�1.3�cm.�An�additional�1.6�cm�benign�appearing�simple�cyst�is�seen�in�the�left ovary. Pap�smear�dated�Lillian��is�negative.
Ultrasound�ultrasound�dated�February��indicates�uterus�9.5�cm�with�a�2.4�cm�fibroid�along�anterior�uterine�body. Endometrium�is�6�mm�with�no�fluid�solid�lesions�or�abnormal�vascularity.�Both�ovaries�appear�to�be�normal�measuring�at�2.5�cm�on
the�right�and�2.60�cm�and�left An�endometrial�biopsy�was�obtained�March�2�which�shows�small�detached�fragments�of�acutely�and�chronically�inflamed endocervical�mucosa�with�reactive�changes�with�no�definitive�endometrium�identified
An�ECC�was�obtained�Maye�1�which�shows�blood�and�fibrin�mucus�and�stroma�and�rare�benign�endocervical�mucosa�cells with�acute�and�chronic�inflammation. Patient�was�seen�Maye�1�in�the�office,�plan�was�for�a�D&C�hysteroscopy
Patient�was�seen�in�the�office�Cece�.�Hysteroscopy�D&C�was�attempted�but�they�were�unable�to�get�in�the�endometrial cavity.�Vaginal�bleeding�was�felt�to�be�coming�from�a�friable�cervix
MRI�of�the�pelvis�[place]��shows�uterus�to�be�anteverted,�endometrium�is�less�than�5�mm�in�thickness,�there�are�multiple
subendometrial�cysts�measuring�less�than�5�mm,�there�is�a�3.2�cm�isointense�T1�and�intermediate�to�low�T2�signal�intramural�mass
in�the�posterior�uterine�body,�this�is�leiomyoma�or�adenomyoma.�There�is�interval�decrease�in�the�size�of�the�1.9�cm�intramural
leiomyoma�in�the�anterior�uterine�body�and�multiple�areas�suggestive�of�adenomyosis.�Right�and�left�ovary�are�normal�in�size.�The
liver�is�mildly�enlarged�18.2�cm�there�is�no�fluid�in�the�abdomen.�There�is�no�small�bowel�wall�thickening�or�distention�there�is�no
abnormal�colonic�distention�and�there�is�mild�amount�of�circumferential�thickening�around�the�rectum�there�is�no�pelvic lymphadenopathy.�Grade�1�anterolisthesis�L5�on�L1�and�L5�on�S1�is�noted�severe�bilateral�facet�joint�arthrosis�are�present
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
Past�medical�history:�Obesity,�hypertension,�prediabetes,�allergies,�gastroesophageal�reflux,�migraines,�bladder�frequency,�chronic swelling�of�ankles,�glaucoma
Past�surgical�history�includes�cholecystectomy,�tonsillectomy,�D&C,�excision�of�fibrocystic�breast�tumor,�varicose�veins
Medications�include�propranolol,�escitalopram,�hydrochlorothiazide,�vitamin�D3,�One�A�Day�multivitamin�Clarice,�Claritin, omeprazole,�Excedrin
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
Family�history�diabetes�in�both�parents�and�brother,�renal�disease�father,�high�blood�pressure�both�parents.�Mother�with�uterine cancer�as�well�as�melanoma
This patient was taken to the operating room on April 02, 2025. She underwent robotic assisted total laparoscopic hysterectomy bilateral salpingo-oophorectomy. Patient tolerated procedure well. Her procedure was late in the day and she did not
have a ride to go home. She was observed in the hospital as she lives alone. She was able to advance her diet to regular. IV fluids were discontinued the next day. She was able to ambulate within her room, pain control was good with combination
of Tylenol and ibuprofen. She was able to void without any difficulty. Discharge instructions were reviewed and she was discharged on April 03, 2025
Discharge Plan
-
Patient Disposition: Home (Routine Discharge)
Discharge Diagnosis/Procedures: Unexplained postmenopausal bleeding, pelvic pain
Condition: Good
Diet: No restrictions and As tolerated
Activity: No restrictions and No strenuous activity
Driving Restrictions: No driving for 1 week
Bathing Restrictions: OK to Shower
Activity Restrictions/Additional Instructions:
Please walk 10 to 15 minutes, 3-4 times a day, it is okay to go up and down stairs, do not lift over 10 pounds for 2 weeks
Referrals:
Juan Alberto Ramon PA-C [Family Provider, Family Practice]
Hansel Urbina MD [Active, [employer]] - 04/08/25
Prescriptions:
Continued
propranolol [Inderal LA] 160 MG capsule,extended release 24 hr
160 mg PO DAILY
lauognu-dtfcgcfwutirx-jfkprsgb [Excedrin Migraine] 1 TABLET tablet
1 tab PO PRN PRN (Reason: headache)
escitalopram oxalate 10 mg Tablet
10 mg PO DAILY
omeprazole-sodium bicarbonate 40-1.1 mg-gram Capsule
1 cap PO HS
hydrochlorothiazide 12.5 mg Tablet
12.5 mg PO DAILY
cholecalciferol (vitamin D3) [Vitamin D3] 125 mcg (5,000 unit) Tablet
125 mcg PO DAILY
kkummnbi-dpw-nxtdfquy-herb 124 250-87.5 mg Tablet,Chewable
1 tab PO DAILY
loratadine [Claritin] 10 mg Tablet
10 mg PO HS
fexofenadine 180 mg Tablet
180 mg PO DAILY
Discharge Orders:
Discharge Patient (As Directed); Ordered 04/03/25
Ordered By: Hansel Urbina
Discharge Date and Time
Print Language: MONGOLIAN
== END 2025-04-03 15:14 | disposition home or self-care (01) ==
LOC: SDS 06:25
PROVIDERS: ATTENDING PHYSICIAN Obstetrics & Gynecology Gynecologic Oncology; CONSULT PHYSICIAN Hospitalist; FAMILY PHYSICIAN Physician Assistant Medical
DX: N84.0 Polyp of corpus uteri (principal); N86 Erosion and ectropion of cervix uteri; N80.03 Adenomyosis of the uterus; D25.9 Leiomyoma of uterus, unspecified; N95.0 Postmenopausal bleeding; R10.2 Pelvic and perineal pain
CPT/HCPCS: 58571; 36415; 80053; 85027; 86850; 86900; 86901; 88307; 93005

== ENCOUNTER → 2025-04-26 15:09 | Outpatient (REF) | payer BC, SELFPAY ==
[2025-04-26 16:07] LABS: Hematocrit 39.1 % (37.0-47.0); Hemoglobin 12.7 g/dL (12.0-16.0); Mean Corp Hgb Conc. 32.5 g/dL (33.0-37.0); Mean Corpuscular Volume 83.2 fL (81.0-99.0); Nucleated Red Blood Cells % 0 %; Platelet Count 208 10^3/uL (130-400); Red Cell Dist. Width 15.9 % (11.5-14.5)
[2025-04-26 16:15] LABS: Urine Character Clear (Clear)
[2025-04-26 19:30] LABS: Urine Red Blood Cell 0-2 /HPF (0-2)
== END ==
LOC: REG 15:09
PROVIDERS: ATTENDING PHYSICIAN Obstetrics & Gynecology Gynecologic Oncology; FAMILY PHYSICIAN Physician Assistant Medical
DX: I10 Essential (primary) hypertension (principal); N93.9 Abnormal uterine and vaginal bleeding, unspecified; R10.2 Pelvic and perineal pain; E66.01 Morbid (severe) obesity due to excess calories; Z80.49 Family history of malignant neoplasm of other genital organs
CPT/HCPCS: 36415; 81003; 81015; 85025; 87086

== ENCOUNTER → 2025-07-02 22:00 | Outpatient (REF) | payer BC, SELFPAY | LOC: DHSLP 22:00 | PROVIDERS: ATTENDING PHYSICIAN Internal Medicine; FAMILY PHYSICIAN Physician Assistant Medical | DX: G47.33 Obstructive sleep apnea (adult) (pediatric) (principal) | CPT/HCPCS: 95800 ==